=== PATIENT | female | born 1970 | race Caucasian/White ===

== ENCOUNTER 2017-11-28 15:57 | Emergency (ER) | payer MEDICARE, MEDICAID ==
[~2017-11-28] VITALS: Ht 167.6 cm; Wt 68.2 kg
[2017-11-28] MEDS ORDERED: ketorolac tromethamine 15mg/ml inj. IV ONE (16:35)
[2017-11-28] MEDS ORDERED: normal saline 1000ML IV soln IVB ONE (16:35)
[2017-11-28] MEDS ORDERED: ondansetron/PF 4mg/2ml inj IV ONE (16:35)
[2017-11-28 16:47] LABS: BASOPHILS % (AUTO) 0.6 % (0-1); EOSINOPHILS # (AUTO) 0.3 X10'3 (0-0.9); EOSINOPHILS % (AUTO) 4.5 % (0-6); HEMATOCRIT 33.9 % (35.0-45.0); HEMOGLOBIN 11.4 g/dl (12.0-16.0); LYMPHOCYTES # (AUTO) 1.9 X10'3 (1.1-4.8); LYMPHOCYTES % (AUTO) 25.2 % (21-51); MEAN CORPUSCULAR HEMOGLOBIN 27.8 PG (27.0-31.0); MEAN CORPUSCULAR HGB CONC 33.5 % (33.0-36.5); MEAN CORPUSCULAR VOLUME 82.9 FL (78-98); MEAN PLATELET VOLUME 9.9 FL (7.4-10.4); MONOCYTES # (AUTO) 0.6 X10'3 (0-0.9); MONOCYTES % (AUTO) 8.1 % (2-12); NEUTROPHILS # (AUTO) 4.7 X10'3 (1.8-7.7); NEUTROPHILS % (AUTO) 61.6 % (42-75); PLATELET COUNT 281 X10'3 (140-440); RED BLOOD COUNT 4.09 X10'6 (4.20-5.60); RED CELL DISTRIBUTION WIDTH 15.4 % (11.5-14.5); WHITE BLOOD COUNT 7.7 X10'3 (4.5-11.0)
[2017-11-28 16:58] LABS: PROTHROMBIN TIME 10.1 SECONDS (9.0-12.0)
[2017-11-28 17:04] LABS: URINE HCG NEGATIVE (NEG)
[2017-11-28 17:12] LABS: CLARITY,URINE SLIGHTLY CLOUDY (Clear); COLOR,URINE YELLOW (Yellow); GLUCOSE, URINE NEGATIVE (Neg); KETONES,URINE TRACE mg/dl (Neg); LEUKOCYTE ESTERASE ,URINE MODERATE (Neg); NITRITES, URINE NEGATIVE (Neg); OCCULT BLOOD,URINE LARGE (Neg); PH,URINE 5.5 (4.8-8.0); PROTEIN,URINE NEGATIVE (Neg); UROBILINOGEN,URINE 0.2 E.U/dL (0.2-1.0)
[2017-11-28 17:18] LABS: URINE AMPHETAMINE SCREEN NEGATIVE (Neg); URINE BARBITUATE SCREEN NEGATIVE (Neg); URINE BENZODIAZEPINES SCREEN NEGATIVE (Neg); URINE CANNABINOID SCREEN NEGATIVE (Neg); URINE COCAINE SCREEN NEGATIVE (Neg); URINE METHADONE SCREEN NEGATIVE (Neg); URINE OPIATE SCREEN NEGATIVE (Neg); URINE PHENCYCLIDINE SCREEN NEGATIVE (Neg)
[2017-11-28 17:24] LABS: ALANINE AMINOTRANSFERASE 80 U/L (12-78); ALBUMIN 3.5 G/DL (3.4-5.0); ALBUMIN/GLOBULIN RATIO 0.9 (1.1-1.5); ALKALINE PHOSPHATASE 82 IU/L (46-116); ANION GAP 9 (8-16); ASPARTATE AMINO TRANSFERASE 36 U/L (10-37); BILIRUBIN,TOTAL 0.2 MG/DL (0.1-1.0); BLOOD UREA NITROGEN 19 MG/DL (7-18); BUN/CREATININE RATIO 15.3 (6.6-38.0); CALCIUM 8.6 MG/DL (8.5-10.1); CHLORIDE 105 MMOL/L (99-107); CREATININE 1.24 MG/DL (0.40-0.90); GLUCOSE 100 MG/DL (70-104); POTASSIUM 3.4 MMOL/L (3.5-5.1); SODIUM 138 MMOL/L (135-145); TOTAL PROTEIN 7.6 G/DL (6.4-8.2); eGFR 46 ML/MIN
[2017-11-28 17:30] LABS: UA COLLECTION TYPE VOIDED
[2017-11-28 17:42] LABS: WBC,URINE 20-30 /HPF (0-4)
[2017-11-28 17:43] LABS: BACTERIA,URINE 1+ /HPF (Neg); MUCUS STRANDS FEW /LPF (Neg); RBC,URINE 0-2 /HPF (0-2); SQUAMOUS EPITHELIAL CELL,UR FEW /LPF (FEW)
[2017-11-28] MEDS ORDERED: ciprofloxacin 250mg tablet PO ONE (18:00)
[2017-11-28] MEDS ORDERED: CIPR-230 PO (18:01)
[2017-11-28] MEDS ORDERED: IBUP-1985 PO (18:01)
[2017-11-28 18:22] VITALS: BP 125/74
== END 2017-11-28 18:23 | disposition home or self-care (01) ==
LOC: ER 15:58
DX: N39.0 Urinary tract infection, site not specified (principal); M54.5 Low back pain; Z87.442 Personal history of urinary calculi; Z88.0 Allergy status to penicillin
CPT/HCPCS: 36415; 80053; 80305; 81001; 81025; 85025; 85610; 87088; 96361; 96374; 96375; 99284; J1885; J2405

== ENCOUNTER 2018-04-03 13:37 | Emergency (ER) | payer MEDICARE, MEDICAID ==
[~2018-04-03] VITALS: Ht 167.6 cm; Wt 92.0 kg
[~2018-04-03 13:37] MED LIST: IBUP-1985 PO
[2018-04-03 13:39] VITALS: BP 106/70
[2018-04-03] MEDS ORDERED: IBUP-1984 PO (13:53)
[2018-04-03] MEDS ORDERED: CEPH500C5 PO (13:53)
[2018-04-03] MEDS ORDERED: ibuprofen tablet 400 MG TABLET PO ONE (13:55)
== END 2018-04-03 13:59 | disposition home or self-care (01) ==
LOC: ER 13:37
DX: S30.861A Insect bite (nonvenomous) of abdominal wall, initial encounter (principal); L03.311 Cellulitis of abdominal wall; Z88.0 Allergy status to penicillin; Z79.2 Long term (current) use of antibiotics; Z79.899 Other long term (current) drug therapy; W57.XXXA Bitten or stung by nonvenomous insect and other nonvenomous arthropods, initial encounter; Y93.89 Activity, other specified; Y92.89 Other specified places as the place of occurrence of the external cause; Y99.8 Other external cause status
CPT/HCPCS: 99283

== ENCOUNTER 2018-08-11 11:36 | Emergency (ER) | payer MEDICARE, MEDICAID ==
[~2018-08-11] VITALS: Ht 167.6 cm; Wt 89.0 kg
[2018-08-11 15:37] VITALS: BP 125/67
== END 2018-08-11 15:44 | disposition home or self-care (01) ==
LOC: ER 11:37
DX: M25.551 Pain in right hip (principal); Z87.442 Personal history of urinary calculi; Z88.0 Allergy status to penicillin; Z79.899 Other long term (current) drug therapy; V49.9XXA Car occupant (driver) (passenger) injured in unspecified traffic accident, initial encounter; Y93.01 Activity, walking, marching and hiking; Y92.410 Unspecified street and highway as the place of occurrence of the external cause; Y99.8 Other external cause status
CPT/HCPCS: 73502; 99283

== ENCOUNTER 2019-03-15 16:51 | Emergency (ER) | payer MEDICARE, MEDICAID ==
[~2019-03-15] VITALS: Ht 167.6 cm; Wt 100.4 kg
[2019-03-15 17:07] VITALS: BP 124/75
[2019-03-15] MEDS ORDERED: METH4TAB3 PO (19:06)
== END 2019-03-15 19:17 | disposition home or self-care (01) ==
LOC: ER 16:51
DX: J04.0 Acute laryngitis (principal); Z87.442 Personal history of urinary calculi; Z88.0 Allergy status to penicillin; Z88.2 Allergy status to sulfonamides
CPT/HCPCS: 87081; 87880; 99283

== ENCOUNTER 2020-01-14 18:26 | Emergency (ER) | payer MEDICARE, MEDICAID ==
[~2020-01-14] VITALS: Ht 167.6 cm; Wt 65.9 kg
[~2020-01-14 18:26] MED LIST changes: +METH4TAB3 PO
[2020-01-14 18:42] VITALS: BP 130/91
[2020-01-14] MEDS ORDERED: ketorolac tromethamine 15mg/ml inj. IV ONE (19:50)
[2020-01-14] MEDS ORDERED: normal saline 1000ML IV soln IVB ONE (19:50)
[2020-01-14] MEDS ORDERED: proCHLORperazine 10 MG/2 ml inj IV ONE (19:50)
[2020-01-14] MEDS ORDERED: diphenhydrAMINE 50 mg/ml inj IV ONE (19:50)
== END 2020-01-14 21:06 | disposition home or self-care (01) ==
LOC: ER 18:26
DX: R51 Headache (principal); R11.2 Nausea with vomiting, unspecified; M79.605 Pain in left leg; M79.604 Pain in right leg; Z86.69 Personal history of other diseases of the nervous system and sense organs; Z88.0 Allergy status to penicillin; Z88.2 Allergy status to sulfonamides; Z79.899 Other long term (current) drug therapy
CPT/HCPCS: 96361; 96374; 96375; 99284; J0780; J1200; J1885; J7030

== ENCOUNTER 2023-10-04 21:02 | Emergency (ER) | payer MEDICARE, MEDICAID ==
[~2023-10-04] VITALS: Ht 162.6 cm; Wt 89.5 kg
[~2023-10-04 21:02] MED LIST changes: +CIPR-202 PO; +HYDR-3964 PO; -IBUP-1985 PO; -METH4TAB3 PO; +METR-159 PO; +ONDA4TAB12 PO
[2023-10-04 21:18] VITALS: BP 151/85; PULSE 82; RESP 16; TEMP 98.8; O2SAT 97
[2023-10-04] MEDS: DOXYCYCLINE 100MG CAPSULE PO STA (22:11)
[2023-10-04] MEDS ORDERED: cephalexin 250mg capsule PO ONE (22:15)
[2023-10-04] MEDS ORDERED: CLIN-233 PO (22:23)
== END 2023-10-04 23:28 | disposition home or self-care (01) ==
LOC: ER 21:03
DX: K65.1 Peritoneal abscess (principal); G43.909 Migraine, unspecified, not intractable, without status migrainosus; Z88.0 Allergy status to penicillin; Z88.2 Allergy status to sulfonamides
CPT/HCPCS: 99283